=== PATIENT | female | born 1975 | race Caucasian/White ===

== ENCOUNTER → 2016-07-27 | Outpatient (CLI) | payer OTHER ==
--- NOTE | 2016-07-27 12:13 | US ---
HISTORY: Left inguinal lymphadenopathy, history of cervical cancer 6 years ago. Study: Ultrasound of the left inguinal region Comparison: No priors Technique: Oseguera scale and color Doppler imaging of the left groin region are provided. Findings: There is a large solid-appearing mass present involving the medial aspect of the left inguinal regio n. This measures about 3.7 x 4.3 centimeters. This may extend intraperitoneally. Multiple lymph node s are present in the left groin region also. Lymph nodes are small but 1 of the lymph nodes displays an abnormal architecture of the cortex. This lymph node measures about 9 x 12 millimeters. Color Do ppler studies are normal. IMPRESSION: Solid-appearing mass present involving the medial left groin region which may extend intraperitoneal ly. CT evaluation of the abdomen and pelvis is suggested. An architecturally abnormal appearing lymp h node is also present in the left groin region. Reported By:
== END ==
LOC: RAD 09:11
PROVIDERS: ATTEND Nurse Practitioner Family
DX: R59.0 Localized enlarged lymph nodes (principal); M79.662 Pain in left lower leg
CPT/HCPCS: 76881

== ENCOUNTER → 2016-08-02 | Outpatient (CLI) | payer OTHER ==
[~2016-08-02] MED LIST: NS 100 ML IV 100 ML IV ONE
--- NOTE | 2016-08-02 10:52 | CT ---
HISTORY: Pelvic and perineal pain, history of cervical cancer Study: CT abdomen and pelvis with contrast Comparison: None Technique: Multiple axial images of the abdomen and pelvis were obtained with IV contrast. Oral contrast was a dministered. Dose reduction techniques including Automated Exposure Control (AEC) and adjustment of mA and kV were utilized. Findings: The visualized portions of the lung bases are unremarkable. The liver, spleen, pancreas, kidneys, a nd adrenal glands are unremarkable in their CT appearance. The gallbladder is normal. No renal calcu li or obstructive uropathy. No free intraperitoneal air. No evidence of intestinal obstruction or inflammation. Oral contrast re aches the transverse colon. The appendix is not visualized. No ascites. There is an abnormal complex heterogeneously enhancing collection seen within the left pelvic side w all that extends inferiorly through the obturator canal into the left groin with possible intramuscu lar components. This collection measures approximately 8.2 x 4 x 4.9 cm. There is no surrounding flu id or inflammatory stranding seen this does not appear to encase surrounding vascular structures, bu t there is loss of normal cortex along the posterior aspect of the left superior pubic ramus. The re maining bony structures appear within normal limits. Status post hysterectomy. The urinary bladder is empty and not well evaluated. Largest lymph node in left inguinal region measures 1.1 cm in long axis. IMPRESSION: 1. Abnormal complex fluid collection or possibly centrally necrotic mass is seen within the left pel toño sidewall extending inferiorly through the obturator canal into the left groin as described. This collection measures approximately 8.2 x 4 x 4.9 cm. Given the history of cervical cancer the findin gs could represent a postsurgical fluid collection versus metastatic disease versus a treated absces s or old hematoma. Correlation with PET scan may be beneficial. 2. This collection causes bony remodeling with loss of posterior cortex of the left superior pubic r amus. Reported By:
== END ==
LOC: RAD 09:08
PROVIDERS: ATTEND Nurse Practitioner Family
DX: R19.04 Left lower quadrant abdominal swelling, mass and lump (principal); R10.2 Pelvic and perineal pain; Z85.41 Personal history of malignant neoplasm of cervix uteri
CPT/HCPCS: 74177; A4222